=== PATIENT | male | born 1990 | race Hispanic/Latino ===

== ENCOUNTER 2017-03-16 15:04 | Emergency (ER) | payer OTHER ==
[2017-03-16 15:13] VITALS: BP 131/81; PULSE 67; RESP 18; TEMP 98.7; O2SAT 98
--- NOTE | 2017-03-16 15:26 | C.PDOC ---
History Of Present Illness 26 y/o male presents to ED for evaluation on abscess he has had on left thigh for 2 days. Patient states he squeezed the area and purulent discharge came out. Patient reports having similar episode in the past without I&D. Patient denies fever, n/v/d or any other complaints at this time. Time Seen by Provider: 03/16/17 15:18 Chief Complaint (Nursing): Abnormal Skin Integrity History Per: Patient History/Exam Limitations: no limitations Onset/Duration Of Symptoms: Days Current Symptoms Are (Timing): Still Present Location Of Injury: Left: Leg Past Medical History Reviewed: Historical Data, Nursing Documentation, Vital Signs Vital Signs: Last Vital Signs Temp 98.7 F 03/16/17 15:12 Pulse 67 03/16/17 15:12 Resp 18 03/16/17 15:12 BP 131/81 03/16/17 15:12 Pulse Ox 98 03/16/17 16:55 - Medical History PMH: Sexually Transmitted Disease (Herpes Simplex 2) Family History: States: Unknown Family Hx - Social History Hx Tobacco Use: Yes Hx Alcohol Use: Yes Hx Substance Use: No - Immunization History Hx Tetanus Toxoid Vaccination: No Hx Influenza Vaccination: No Hx Pneumococcal Vaccination: No Review Of Systems Except As Marked, All Systems Reviewed And Found Negative. Constitutional: Negative for: Fever, Chills Gastrointestinal: Negative for: Nausea, Vomiting, Diarrhea Skin: Negative for: Rash Physical Exam - Physical Exam Appears: Non-toxic, No Acute Distress Skin: Warm, Dry, Other (1cm area of erythema on left inner thigh with central scab, no flunctuance or discharge) Head: Atraumatic, Normacephalic Eye(s): bilateral: Normal Inspection, EOMI Nose: Normal Oral Mucosa: Moist Neck: Normal ROM, Supple Lymphatic: No Inguinal Node Tenderness Chest: Symmetrical Respiratory: No Accessory Muscle Use Extremity: Normal ROM, Capillary Refill (<2 seconds) Extremity: Bilateral: Normal ROM Pulses: Left Dorsalis Pedis: Normal, Right Dorsalis Pedis: Normal Neurological/Psych: Oriented x3, Normal Motor, Normal Sensation ED Course And Treatment O2 Sat by Pulse Oximetry: 98 (RA) Pulse Ox Interpretation: Normal Progress Note: Discussed wound care and signs and symtpoms latrell concern ro return to ER . Patient discharged home and instructed to follow up with PMD in 2 days. Reevaluation Time: 15:15 Reassessment Condition: Improved Disposition - Disposition Disposition: HOME/ ROUTINE Disposition Time: 15:24 Condition: STABLE Additional Instructions: Apply warm compresses. Do not squeeze the area. Watch for signs of increased infection including redness, swelling or discharge. Follow up with primary medical doctor in 1-3 days without fail for further evaluation. Take medications as prescribed. Return to the emergency department at any time if symptoms persist or worsen. Prescriptions: Sulfamethoxazole/Trimethoprim [Bactrim DS 800 mg-160 mg] 1 tab PO BID #14 tab Instructions: Abscess (ED) - Clinical Impression Clinical Impression: Cellulitis - Scribe Statement The provider has reviewed the documentation as recorded by the Johnibjoseph Figueroa All medical record entries made by the Edi were at my direction and personally dictated by me. I have reviewed the chart and agree that the record accurately reflects my personal performance of the history, physical exam, medical decision making, and the department course for this patient. I have also personally directed, reviewed, and agree with the discharge instructions and disposition.
== END 2017-03-16 16:07 | disposition home or self-care (01) ==
LOC: C.ER 15:04
DX: L03.116 Cellulitis of left lower limb (principal)